=== PATIENT | male | born 1940 | race Caucasian/White ===

== ENCOUNTER 2017-06-01 11:00 | Day surgery (SDC) | payer MEDICARE, BC ==
[2017-05-25 16:01] VITALS: BMI 32.5
--- NOTE | 2017-05-31 09:14 | HP ---
HISTORY AND PHYSICAL CHIEF COMPLAINT: Right hand pain and numbness. HISTORY OF PRESENT ILLNESS: The patient is a 77-year-old, right-hand dominant, retired gentleman who presents with progressive right hand pain and numbness for the past 6 months. He notes a difficult time with gripping and grasping. He is having night symptoms. He notes numbness throughout his hand. He has tried medications in addition to an injection with only partial temporary relief. PAST MEDICAL HISTORY: Significant for hypertension, coronary artery disease, arthritis, peripheral vascular disease and neuropathy. PAST SURGICAL HISTORY: Significant for bilateral knee arthroscopy, left thumb and right index finger trigger release. CURRENT MEDICATIONS: 1. Aspirin. 2. Atenolol. 3. Diovan. 4. Loratadine. 5. Lyrica. 6. Plavix. 7. Nitroglycerin. 8. Prilosec. 9. Simvastatin. 10.[place]. ALLERGIES: IODINE. FAMILY HISTORY: Significant for heart disease. SOCIAL HISTORY: Significant for previous tobacco use; however, he quit in 1972. 16 POINT REVIEW OF SYSTEMS: Otherwise reviewed and is noncontributory. On examination, the patient is approximately 5 foot 9, 200 pounds of endomorphic habitus. HEENT exam is nonfocal. Neck is supple. He is nontender about the right shoulder and elbow. On examination of the right wrist, he has a positive Tinel's over the carpal canal. Carpal tunnel compression test is positive. Light touch is diminished throughout the right thumb, index and middle fingers. Capillary refill is less than 2 seconds throughout the right digits. Adductor pollicis brevis strength is 4+/5 on the right. He has moderate thenar atrophy. EMG report right upper extremity shows severe right carpal tunnel syndrome. IMPRESSION: 1. Symptomatic right carpal tunnel syndrome. 2. History of neuropathy and multiple medical comorbidities. RECOMMENDATIONS: I talked to the patient at length regarding his treatment options. At this point, he is quite symptomatic and opts to proceed with surgery. We will plan to proceed with right carpal tunnel release utilizing local anesthetic and IV sedation. We will likely perform that as an outpatient procedure. MMODL / IJN: [id number] /
[~2017-06-01 11:00] MED LIST: DEXAMETHASONE SOD PHOSPHATE 10 MG/ML 1 ML VIAL IV ONE; HYDROmorphone 0.5 MG/0.5 ML SYRINGE IVP PRN; LACTATED RINGERS 1,000 ML IV SCH; ONDANSETRON 4 MG/2 ML VIAL IVP ONE; ceFAZolin 2 GM in SODIUM CHLORIDE 0.9% 100 ML IVPB ONE
[2017-06-01 11:12] VITALS: RESP 18; TEMP 98
[2017-06-01] MEDS ORDERED: LIDOCAINE 1% 20 ML VIAL (10MG/ML) FOR IV START SQ ONE (11:28)
[2017-06-01] MEDS ORDERED: BUPIVACAINE (PF) 0.25% 30 ML VIAL SQ ONE ×2 (12:50→13:13)
[2017-06-01] MEDS ORDERED: PROPOFOL 10 MG/ML 20 ML VIAL IV ONE (13:05)
[2017-06-01] MEDS ORDERED: MIDAZOLAM 2 MG/2 ML VIAL ONE (13:05)
[2017-06-01] MEDS ORDERED: KETAMINE 10 MG/ML 20 ML VIAL ONE (13:05)
--- NOTE | 2017-06-01 13:31 | P.OP ---
Date of Procedure: 06/01/17 Preoperative Diagnosis: Right carpal tunnel syndrome Postoperative Diagnosis: Same Procedure(s) Performed: Right carpal tunnel release Anesthesia: MAC, local Surgeon: Royce Holliday Estimated Blood Loss (ml): 2 Pathology: none sent Condition: stable Disposition: PACU Indications for Procedure: The patient's a 77-year-old gentleman who presents with progressive right hand pain and numbness secondary to carpal tunnel syndrome despite conservative measures. A discussion of the risks and benefits of operative intervention versus continued conservative measures was made with patient. He opted to proceed with surgery. Operative risks to include infection, neurovascular injury, development of blood clots, possible incomplete resolution of symptoms, possible recurrence of symptoms and need for subsequent procedures was discussed. Informed consent was obtained. Operative Findings: As below Description of Procedure: The patient was brought to the operating room, and after induction of IV sedation the right upper extremity was prepped and draped in a normal fashion. The proposed incision site was outlined with a skin marker in line with the radial aspect the fourth ray extending from the volar distal wrist crease 3 cm distally. One quarter percent plain Marcaine was injected proposed incision site. 10 mL was utilized. The tourniquet was inflated to 250 mmHg. The skin was then incised. Subcu tissues were divided sharply. Electrocautery was used for hemostasis. The superficial palmar fascia was identified and split in line with the skin incision. The transverse carpal ligament was identified and transected distally under direct visualization until the level of the palmar fat pad. Proximally it was taken to level the volar wrist crease. A plane above and below the transverse carpal ligament was then fully developed with tenotomy. The confluence of the distal forearm fascia and the transverse carpal ligament was then transected under direct visualization with the tenotomies pointed in the ulnar direction. I felt there was adequate proximal release. Neural lysis was not performed. The wound was irrigated normal saline. The skin was reapproximated with simple 3-0 nylon sutures. A sterile dressing was applied. The tourniquet was deflated less than 20 minutes total tourniquet time. The patient was awoken from sedation and transferred to recovery room in good condition. Blood loss estimated at 2 mL. No complications were incurred. Sponge and needle counts were correct at the end the case.
[2017-06-01 13:37] VITALS: PULSE 68
[2017-06-01 14:24] VITALS: BP 161/78
== END 2017-06-01 14:23 | disposition home or self-care (01) ==
LOC: OR 11:00
PROVIDERS: ATTEND Orthopaedic Surgery
DX: G56.01 Carpal tunnel syndrome, right upper limb (principal); G62.9 Polyneuropathy, unspecified; Z95.5 Presence of coronary angioplasty implant and graft; Z99.89 Dependence on other enabling machines and devices; I10 Essential (primary) hypertension; I25.10 Atherosclerotic heart disease of native coronary artery without angina pectoris; M19.90 Unspecified osteoarthritis, unspecified site; I73.9 Peripheral vascular disease, unspecified; E78.5 Hyperlipidemia, unspecified; G47.33 Obstructive sleep apnea (adult) (pediatric); N40.0 Benign prostatic hyperplasia without lower urinary tract symptoms; K21.9 Gastro-esophageal reflux disease without esophagitis; Z79.02 Long term (current) use of antithrombotics/antiplatelets; Z79.82 Long term (current) use of aspirin; Z79.51 Long term (current) use of inhaled steroids; Z79.891 Long term (current) use of opiate analgesic; Z79.899 Other long term (current) drug therapy; Z87.891 Personal history of nicotine dependence; Z91.041 Radiographic dye allergy status
CPT/HCPCS: 64721; J2250; J1100; J0690; J2405; J2704

== ENCOUNTER 2017-07-06 06:48 | Day surgery (SDC) | payer MEDICARE, BC ==
[2017-07-01 10:06] VITALS: BMI 32.5
--- NOTE | 2017-07-05 10:46 | HP ---
HISTORY AND PHYSICAL CHIEF COMPLAINT: Left hand pain and numbness. HISTORY OF PRESENT ILLNESS: The patient is a 77-year-old right-hand dominant male who presents with progressive left hand pain and numbness, worsening over the past 6 months. He notes night symptoms. He has a difficult time with gripping and grasping. He notes numbness and pain. He has been taking medications without much relief. He recently underwent right carpal tunnel release. PAST MEDICAL HISTORY: Significant for neuropathy, peripheral vascular disease, coronary artery disease, hypertension, and arthritis. PAST SURGICAL HISTORY: Significant for previous trigger thumb and index finger release, right knee arthroscopy, right carpal tunnel release. CURRENT MEDICATIONS: 1. Aspirin. 2. Atenolol. 3. Diovan. 4. Loratadine. 5. Lyrica. 6. Plavix. 7. Nitroglycerin. 8. Simvastatin. 9. Prilosec. 10.Dent. ALLERGIES: IODINE. FAMILY HISTORY: Significant for heart disease. SOCIAL HISTORY: Significant for previous tobacco use; however, he quit in 1972. 16 POINT REVIEW OF SYSTEMS: Noncontributory. PHYSICAL EXAMINATION: Of his left wrist, he has a positive Tinel's over the carpal canal. Light touch is diminished in the left thumb, index and middle finger. Adductor pollicis brevis strength is 4+/5. He has moderate thenar atrophy. He has full digital range of motion. EMG report for the left upper extremity shows severe carpal tunnel syndrome. IMPRESSION: Left severe carpal tunnel syndrome. RECOMMENDATIONS: I talked to the patient at length regarding his treatment options. At this point, he opts to proceed with surgery. We will plan to proceed with left carpal tunnel release. We will likely perform that as an outpatient procedure utilizing local anesthetic and IV sedation. MMODL / IJN: [id number] /
[~2017-07-06 06:48] MED LIST changes: -ceFAZolin 2 GM in SODIUM CHLORIDE 0.9% 100 ML IVPB ONE; +ceFAZolin IN SWFI 2 GM/20 ML SYRINGE IVP ONE
[2017-07-06 09:49] VITALS: TEMP 96.9
[2017-07-06] MEDS ORDERED: LIDOCAINE 1% 20 ML VIAL (10MG/ML) FOR IV START INTRADERMA ONE (10:03)
[2017-07-06] MEDS ORDERED: hydrALAZINE HCL 20 MG/ML 1 ML VIAL IV ONE (10:14)
[2017-07-06] MEDS ORDERED: LIDOCAINE 1% INJ 10MG/ML (20 ML MDV) ONE (12:13)
[2017-07-06] MEDS ORDERED: BUPIVACAINE (PF) 0.25% 30 ML VIAL SQ ONE (12:13)
[2017-07-06] MEDS ORDERED: MIDAZOLAM 2 MG/2 ML VIAL ONE (12:13)
[2017-07-06] MEDS ORDERED: PROPOFOL 10 MG/ML 20 ML VIAL IV ONE (12:13)
--- NOTE | 2017-07-06 12:45 | P.OP ---
Date of Procedure: 07/06/17 Preoperative Diagnosis: Left carpal tunnel syndrome Postoperative Diagnosis: Same Procedure(s) Performed: Left carpal tunnel release Anesthesia: MAC, local Surgeon: Royce Holliday Estimated Blood Loss (ml): 2 Pathology: none sent Condition: stable Disposition: PACU Indications for Procedure: The patient's a 77-year-old male who presents with progressive left hand pain and numbness secondary to carpal tunnel syndrome despite conservative measures. A discussion of the risks and benefits of operative intervention versus continued conservative measures was made with the patient. He opted to proceed with surgery. Operative risks to include infection, neurovascular injury, development of blood clots, possible incomplete resolution of symptoms, possible recurrence of symptoms and need for subsequent procedures was discussed. Informed consent was obtained. Operative Findings: As below Description of Procedure: The patient was brought to the operating room, and after induction of IV sedation the left upper extremity was prepped and draped in normal fashion. The proposed incision site was outlined with a skin marker in line with the radial aspect of the fourth ray extending from the volar wrist crease distally 3 cm. 10 mL of quarter percent plain Marcaine was injected proposed incision site. The tourniquet was inflated to 250 mmHg. The skin incision was then made. subcutaneous tissues were divided sharply. Electrocautery was used for hemostasis. The superficial palmar fascia was identified and split in line with the skin incision. The transverse carpal ligament was identified and transected under direct visualization distally to level the palmar fat pad. Proximally it was taken to level the volar wrist crease. A plane above and below the transverse carpal ligament was then bluntly developed with tenotomies. The confluence of the distal forearm fascia and the transverse carpal ligament was then transected under direct visualization with tenotomies with the tines pointed in the ulnar direction. I felt there was adequate proximal release. Neural lysis was not performed. The wound was irrigated. The skin was reapproximated with simple 3-0 nylon suture. The tourniquet was deflated less than 15 minutes total tourniquet time. Patient was awoken from sedation and transferred to recovery room in good condition. Blood loss less than 2 mL. No complications were incurred. Sponge and needle counts were correct at the case.
[2017-07-06 13:31] VITALS: BP 169/88; PULSE 66; RESP 20
== END 2017-07-06 14:00 | disposition home or self-care (01) ==
LOC: OR 06:48
PROVIDERS: ATTEND Orthopaedic Surgery
DX: G56.02 Carpal tunnel syndrome, left upper limb (principal); G62.9 Polyneuropathy, unspecified; I73.9 Peripheral vascular disease, unspecified; I25.10 Atherosclerotic heart disease of native coronary artery without angina pectoris; I10 Essential (primary) hypertension; Z87.891 Personal history of nicotine dependence; Z95.5 Presence of coronary angioplasty implant and graft; G47.33 Obstructive sleep apnea (adult) (pediatric); N40.0 Benign prostatic hyperplasia without lower urinary tract symptoms; K21.9 Gastro-esophageal reflux disease without esophagitis; M19.90 Unspecified osteoarthritis, unspecified site; Z79.02 Long term (current) use of antithrombotics/antiplatelets; Z79.82 Long term (current) use of aspirin; Z79.891 Long term (current) use of opiate analgesic; Z79.899 Other long term (current) drug therapy; Z91.041 Radiographic dye allergy status

== ENCOUNTER 2018-04-12 08:28 | Day surgery (SDC) | payer MEDICARE, BC ==
[2018-04-07 12:55] VITALS: BMI 31.0
--- NOTE | 2018-04-11 15:30 | HP ---
HISTORY AND PHYSICAL CHIEF COMPLAINT: Right thumb pain. HISTORY OF PRESENT ILLNESS: The patient is a 78-year-old retired gentleman who presents with progressive right thumb pain worsening over the past couple of months. He notes triggering and locking. He has tried medications without much relief. He has a history of multiple other trigger fingers that required surgery. PAST MEDICAL HISTORY: Significant for neuropathy, peripheral vascular disease, arthritis, and hypertension. PAST SURGICAL HISTORY: Significant for right knee surgery, left thumb trigger release, right index trigger release. CURRENT MEDICATIONS: Atenolol, aspirin, Diovan, Lyrica, nitroglycerin, Plavix, or Prilosec, simvastatin, and [place]. ALLERGIES: He has ALLERGIES TO IODINE. FAMILY HISTORY: Significant for heart disease. SOCIAL HISTORY: Significant for previous tobacco use; however, he quit in 1972. REVIEW OF SYSTEMS: Sixteen point review of systems otherwise reviewed and is noncontributory. PHYSICAL EXAMINATION: On examination, the patient is approximately 5 foot 9, 205 pounds of endomorphic habitus. HEENT exam is nonfocal. Neck is supple. He is nontender about the right shoulder, elbow and wrist. On examination of the right hand, he has tenderness over the oblique yocasta of the thumb. He has palpable triggering. He is unable to fully extend. Light touch is distally intact. Grind test is negative. IMPRESSION: 1. Symptomatic right trigger thumb. 2. History of peripheral vascular disease. 3. Multiple medical comorbidities. RECOMMENDATIONS: I talked to the patient at length regarding his condition and treatment options. At this point, he is quite symptomatic and opts to proceed with surgery. We will plan to proceed with right trigger thumb release utilizing local anesthetic and IV sedation. Risks and benefits were discussed at length in layman's terms. MMODL / IJN: [id number] /
[~2018-04-12 08:28] MED LIST changes: -HYDROmorphone 0.5 MG/0.5 ML SYRINGE IVP PRN; +LIDOCAINE 1% 20 ML VIAL (10MG/ML) FOR IV START INTRADERMA PRN; +MIDAZOLAM 2 MG/2 ML VIAL IV PRN; +fentaNYL (PF) 50 MCG/ML 2 ML AMP IV PRN
[2018-04-12 09:01] VITALS: TEMP 97.4
[2018-04-12] MEDS ORDERED: LIDOCAINE 1% INJ 10MG/ML (20 ML MDV) ONE (10:47)
[2018-04-12] MEDS ORDERED: KETAMINE 10 MG/ML 20 ML VIAL ONE (10:47)
[2018-04-12] MEDS ORDERED: MIDAZOLAM 2 MG/2 ML VIAL ONE (10:47)
[2018-04-12] MEDS ORDERED: PROPOFOL 10 MG/ML 20 ML VIAL IV ONE (10:47)
[2018-04-12] MEDS ORDERED: LIDOCAINE 1% INJ 10MG/ML (20 ML MDV) SQ ONE (11:01)
--- NOTE | 2018-04-12 11:29 | P.OP ---
Date of Procedure: 04/12/18 Preoperative Diagnosis: Symptomatic right trigger thumb Postoperative Diagnosis: Same Procedure(s) Performed: Right trigger thumb release Anesthesia: MAC, local Surgeon: Royce Holliday Estimated Blood Loss (ml): 1 Pathology: none sent Condition: stable Disposition: PACU Indications for Procedure: The patient's a 78-year-old male who presents with progressive right thumb pain and triggering despite conservative measures. A discussion of the risks and benefits of operative intervention was made with patient. He opted to proceed. Operative risks to include infection, neurovascular injury, recurrence of symptoms and need for subsequent procedures was discussed. Informed consent was obtained. Operative Findings: As below Description of Procedure: The patient was brought to the operating room, and after induction of IV sedation the proposed incision site was outlined with a skin marker in line with the volar crease of the thumb MCP joint. 7 mL of 1% lidocaine was injected. The tourniquet was inflated to 250 mmHg. A 1 cm incision was then made along the volar aspect of the right thumb MCP joint. Skin was incised sharply. Subcu tissues tissues were divided bluntly. The neurovascular bundles were gently retracted. The oblique yocasta was identified and transected under direct visualization proximal and distal. There was nodularity of the flexor tendon. The wound was irrigated normal saline. The skin was reapproximated with simple 3-0 nylon suture. A sterile dressing was applied. The tourniquet was deflated less than 15 minutes total tourniquet time. The patient was awoken from sedation and transferred to recovery room in good condition. Blood loss was estimated 1 mL. No complications were incurred. Sponge and needle counts were correct at the end the case.
[2018-04-12 12:13] VITALS: BP 154/78; PULSE 65; RESP 18
== END 2018-04-12 12:35 | disposition home or self-care (01) ==
LOC: OR 08:28
PROVIDERS: ATTEND Orthopaedic Surgery
DX: M65.311 Trigger thumb, right thumb (principal); Z91.041 Radiographic dye allergy status; I25.10 Atherosclerotic heart disease of native coronary artery without angina pectoris; I10 Essential (primary) hypertension; K21.9 Gastro-esophageal reflux disease without esophagitis; E78.5 Hyperlipidemia, unspecified; M19.90 Unspecified osteoarthritis, unspecified site; I73.9 Peripheral vascular disease, unspecified; G47.33 Obstructive sleep apnea (adult) (pediatric); G58.8 Other specified mononeuropathies; G62.9 Polyneuropathy, unspecified; Z79.02 Long term (current) use of antithrombotics/antiplatelets; Z79.82 Long term (current) use of aspirin; Z79.891 Long term (current) use of opiate analgesic; Z79.899 Other long term (current) drug therapy; Z87.891 Personal history of nicotine dependence
CPT/HCPCS: 26055; J2250; J1100; J2405; J2001; J2704; J0690

== ENCOUNTER 2021-02-28 09:17 | Day surgery (SDC) | payer MEDICARE, BC ==
--- NOTE | 2021-02-27 18:44 | HP ---
HISTORY AND PHYSICAL CHIEF COMPLAINT: Right ring finger pain and locking. HISTORY OF PRESENT ILLNESS: The patient is a 80-year-old right-hand dominant gentleman who presents with right ring finger pain and locking for the past 8 months. He notes it is worse in the morning. He has a difficult time with gripping and grasping. PAST MEDICAL HISTORY: Significant for hypertension, arthritis, peripheral vascular disease and neuropathy. PAST SURGICAL HISTORY: Significant for right knee arthroscopy, left thumb and right index trigger release. CURRENT MEDICATIONS: Atenolol, aspirin, Diovan, loratadine, Lyrica, nitroglycerin, Plavix, Prilosec, simvastatin, and [place]. ALLERGIES: IODINE. FAMILY HISTORY: Significant for heart disease. SOCIAL HISTORY: Significant for previous tobacco use. REVIEW OF SYSTEMS: Sixteen-point review of systems otherwise reviewed and is noncontributory. PHYSICAL EXAMINATION: On examination, the patient is approximately 5 foot 9, 200 pounds of endomorphic habitus. HEENT exam is nonfocal. Neck is supple. He is nontender about the right shoulder, elbow and wrist. On examination of the right hand, he is tender about the ring finger flexor sheath over the A1 yocasta. He has palpable triggering. He has limited range of motion. His distal neurovascular exam appears intact. IMPRESSION: Right ring trigger finger-symptomatic. RECOMMENDATIONS: I talked to the patient at length regarding his condition and treatment options. At this point, he is quite symptomatic and opted to proceed with surgery. We will proceed with right ring trigger finger release. We will likely perform that utilizing local anesthetic and IV sedation. Risks and benefits were discussed at length in layman's terms. MMODL / IJN: [id number] /
[~2021-02-28 09:17] MED LIST changes: -DEXAMETHASONE SOD PHOSPHATE 10 MG/ML 1 ML VIAL IV ONE; +DEXAMETHASONE SOD PHOSPHATE 4 MG/ML 1 ML VIAL IV ONE; +HYDROmorphone 0.5 MG/0.5 ML SYRINGE IVP PRN; +LIDOCAINE 1% (10MG/ML) FOR IV START INTRADERMA PRN; -LIDOCAINE 1% 20 ML VIAL (10MG/ML) FOR IV START INTRADERMA PRN; -MIDAZOLAM 2 MG/2 ML VIAL IV PRN; -ONDANSETRON 4 MG/2 ML VIAL IVP ONE; -ceFAZolin IN SWFI 2 GM/20 ML SYRINGE IVP ONE; -fentaNYL (PF) 50 MCG/ML 2 ML AMP IV PRN
[2021-02-28 09:47] VITALS: RESP 16; TEMP 97.2
[2021-02-28] MEDS ORDERED: ONDANSETRON 4 MG/2 ML VIAL ONE (10:10)
[2021-02-28] MEDS ORDERED: ONDANSETRON 4 MG/2 ML VIAL IVP ONE (10:14)
[2021-02-28] MEDS ORDERED: fentaNYL (PF) 50 MCG/ML 2 ML AMP ONE (10:30)
[2021-02-28] MEDS ORDERED: MIDAZOLAM 2 MG/2 ML VIAL ONE (10:30)
[2021-02-28] MEDS ORDERED: PROPOFOL 10 MG/ML 20 ML VIAL IV ONE (10:30)
[2021-02-28] MEDS ORDERED: BUPIVACAINE (PF) 0.25% 30 ML VIAL SQ ONE (10:45)
--- NOTE | 2021-02-28 11:04 | P.OP ---
Date of Procedure: 02/28/21 Preoperative Diagnosis: Symptomatic right ring trigger finger Postoperative Diagnosis: Same Procedure(s) Performed: Right ring trigger finger release Anesthesia: MAC, local Surgeon: Royce Holliday Estimated Blood Loss (ml): 1 Pathology: none sent Condition: stable Disposition: PACU Indications for Procedure: The patient's a 80-year-old gentleman who presents with progressive right ring finger pain and locking for the past several months. He tried conservative measures with persistence of his symptoms. A discussion of the risks and benefits of operative intervention versus continued conservative measures was made with patient. He opted to proceed with surgery. Operative risks to include infection, neurovascular injury, possible recurrence need for subsequent procedures was discussed. Informed consent was obtained. Operative Findings: As below Description of Procedure: The patient was brought to the operating room, and after induction of IV sedation the right upper extremity was prepped and draped in normal fashion. The proposed incision site was outlined skin marker in line with the ring finger just distal to the palmar crease. 8 mL of quarter percent plain Marcaine was injected. The tourniquet was inflated to 250 mmHg. A 1 cm medial incision was then made. Skin was incised sharply. Subcu tissues were divided bluntly. The neurovascular bundles were gently retracted. A1 yocasta was identified and transected under direct visualization proximal and distal. The tendon excursion was then visualized. There was some nodularity in the flexor tendon. The wound was irrigated normal saline. The skin was reapproximated with simple 3-0 nylon suture. A sterile dressing was applied. The tourniquet was deflated with less than 20 minutes total tourniquet time. Patient was awoken from sedation and transferred to recovery room in good condition. Blood loss was estimated 1 mL. No complications were incurred. Sponge and needle counts were correct at the end of the case.
[2021-02-28 11:42] VITALS: BP 141/72; PULSE 60
== END 2021-02-28 12:03 | disposition home or self-care (01) ==
LOC: OR 09:17
PROVIDERS: ATTEND Orthopaedic Surgery
DX: M65.341 Trigger finger, right ring finger (principal); I10 Essential (primary) hypertension; M19.90 Unspecified osteoarthritis, unspecified site; I73.9 Peripheral vascular disease, unspecified; G62.9 Polyneuropathy, unspecified; I25.119 Atherosclerotic heart disease of native coronary artery with unspecified angina pectoris; Z79.899 Other long term (current) drug therapy; Z79.82 Long term (current) use of aspirin; I48.0 Paroxysmal atrial fibrillation; E78.5 Hyperlipidemia, unspecified; E66.9 Obesity, unspecified; Z68.31 Body mass index [BMI] 31.0-31.9, adult; J84.9 Interstitial pulmonary disease, unspecified; Z79.01 Long term (current) use of anticoagulants; G47.33 Obstructive sleep apnea (adult) (pediatric); Z87.891 Personal history of nicotine dependence; K21.9 Gastro-esophageal reflux disease without esophagitis
CPT/HCPCS: 26055; J2250; J1100; J2405; J3010; J2704